=== PATIENT | male | born 1995 | race Caucasian/White ===

== ENCOUNTER 2024-07-26 17:37 | Emergency (ER) | payer SELFPAY ==
[~2024-07-26] VITALS: Ht 177.8 cm; Wt 80.0 kg
[2024-07-26 17:39] VITALS: O2SAT 96
[2024-07-26] MEDS: MAGNESIUM/ALUMINUM HYDROXIDE/SIMETHICONE 30ML UDC PO STA (20:39)
[2024-07-26] MEDS: FAMOTIDINE 20MG TABLET PO ONE (20:40)
[2024-07-26] MEDS: VISCOUS LIDOCAINE 2% 15 ML UDC MM SCH (20:40)
[2024-07-26 20:46] LABS: BASOPHILS % 0.6 % (0.0-2.0); EOSINOPHILS % 3.4 % (0.0-5.0); HEMOGLOBIN. 14.5 g/dL (14.0-18.0); LYMPHOCYTES % 28.7 % (20.0-50.0); MEAN CORPUSCULAR HGB CONC 32.9 g/dL (31.0-37.0); MEAN CORPUSCULAR VOLUME 94.3 fL (80.0-94.0); MEAN PLATELET VOLUME 7.4 fl (7.4-10.4); MONOCYTES % 4.5 % (2.0-8.0); NEUTROPHILS % 62.8 % (40.0-76.0); PLATELET 325 x1000/uL (130-400); RED BLOOD CELL COUNT 4.67 mill/uL (4.7-6.1); RED CELL DISTRIBUTION WIDTH 13.6 % (11.6-14.6); WHITE BLOOD COUNT 7.2 x1000/uL (4.5-11.0)
[2024-07-26 20:53] LABS: CHLORIDE 107 mEq/L (98-107); POTASSIUM 4.3 mEq/L (3.5-5.1); SODIUM 143 mEq/L (136-145)
[2024-07-26 20:54] LABS: CALCIUM 9.7 mg/dL (8.7-10.4); CARBON DIOXIDE 30 mEq/L (21-32)
[2024-07-26 20:59] LABS: CREATININE 1.2 mg/dL (0.6-1.3); GLUCOSE 97 mg/dL (70-105); UREA NITROGEN BLOOD 11 mg/dL (9-23)
[2024-07-26 21:01] LABS: ALANINE AMINOTRANSFERASE 96 IU/L (10-49); ALBUMIN 4.4 g/dL (3.2-4.8); ASPARTATE AMINOTRANSFERASE 42 IU/L (<34); BILIRUBIN DIRECT 0.2 mg/dL (<=3.0)
[2024-07-26 21:02] LABS: BILIRUBIN TOTAL 0.8 mg/dL (0.1-1.0); PROTEIN TOTAL 7.6 g/dL (6.0-8.3)
[2024-07-26 22:32] LABS: CLARITY URINE CLEAR (CLEAR); COLOR URINE YELLOW (YELLOW); GLUCOSE URINE NEGATIVE (NEGATIVE); KETONES URINE NEGATIVE (NEGATIVE); LEUKOCYTE ESTERASE URINE NEGATIVE (NEGATIVE); NITRITE URINE NEGATIVE (NEGATIVE); OCCULT BLOOD URINE NEGATIVE (NEGATIVE); PH URINE 7.5 (4.5-8.0); PROTEIN URINE NEGATIVE (NEGATIVE); SPECIFIC GRAVITY URINE 1.066 (1.005-1.030); UROBILINOGEN URINE 0.2 E.U./dL (0.2-1.0)
[2024-07-27] MEDS: IOHEXOL-300 100 ML BOTTLE ONE (00:01)
[2024-07-27] MEDS ORDERED: MAG355OR21 MT (00:14)
[2024-07-27] MEDS ORDERED: FAMO-135 MT (00:14)
[2024-07-27 00:47] VITALS: BP 113/75; PULSE 67; RESP 13; TEMP 37; O2SAT 100
== END 2024-07-27 00:52 | disposition home or self-care (01) ==
LOC: ER 17:37
DX: R10.84 Generalized abdominal pain (principal); Z79.899 Other long term (current) drug therapy
CPT/HCPCS: 80076; 80048; 81003; 83690; 85025; 36415; 74177; 99285; Q9967; Z7610